=== PATIENT | male | born 1990 | race Caucasian/White ===

== ENCOUNTER → 2017-06-26 | Outpatient (CLI) | payer OTHER ==
--- NOTE | 2017-06-26 08:39 | DIAGNOSTIC IMAGING REPORT ---
SOFT TISS HEAD/NECK-THYROID CLINICAL HISTORY: 27 years-old Male with R59.1 Lymphadenopathy COMPARISON: None available TECHNIQUE: Multiple real time sonographic images of the thyroid were obtained accessing miller scale appearance and color doppler flow. FINDINGS: MEASUREMENTS: Right lobe: 5.5 x 1.4 x 1.9 cm Left lobe: 4.4 x 1.2 x 1.5 cm Isthmus: 0.3 cm PARENCHYMA: The thyroid parenchymal echotexture is generally homogeneous. THYROID NODULES: No discrete nodules are appreciated. SOFT TISSUES: Within the right neck normal-appearing lymph nodes with echogenic fatty sonido are seen, largest of which measures 3.1 x 0.9 x 1.9 cm. Within the left neck the largest lymph node measures 3.3 x 0.9 x 1.5 cm. No pathologically enlarged lymph nodes are identified. IMPRESSION: 1. Unremarkable sonographic appearance of the thyroid without discrete thyroid nodule identified. 2. Mildly prominent nonenlarged bilateral lymph nodes of the neck measuring less than 1 cm in short axis are likely on a physiologic basis. Follow-up could be considered to exclude a progressive abnormality if clinically indicated. The above report was generated using voice recognition software. It may contain grammatical, syntax or spelling errors. Electronically signed by: Flaoc Ramos M.D. 06/26/2017 8:38 AM Dictated Date/Time: 06/26/2017 8:34 AM
== END | disposition home or self-care (01) ==
LOC: C.ULTRBC 08:05
PROVIDERS: ATTEND Physician Assistant Medical
DX: R59.1 Generalized enlarged lymph nodes (principal)

== ENCOUNTER → 2017-08-29 | Outpatient (CLI) | payer OTHER ==
[~2017-08-29] MED LIST: OPTIRAY 320 IV PRN
--- NOTE | 2017-08-29 09:47 | DIAGNOSTIC IMAGING REPORT ---
SOFT TISSUE NECK WITH HISTORY: 27 years-old Male R59.1 [id number] COMPARISON: Thyroid ultrasound 06/26/2017 TECHNIQUE: Multiple axial CT images of the soft tissues of the neck were obtained following the intravenous administration of 94 mL Optiray 320 IV contrast. A dose lowering technique was used consistent with the principals of LEONOR. FINDINGS: Nasopharynx, oral pharynx and hypopharynx are patent. Scattered calcifications within the distribution of the palatine tonsil on the right suggest tonsilliths. The vallecula and piriform sinuses, epiglottis and area epiglottic folds are unremarkable. Glottis and subglottic airway are unremarkable. No prevertebral soft tissue swelling or acute inflammatory changes. The thyroid is homogeneous. Level II lymph nodes are seen measuring up to 8-9 mm mm in short axis bilaterally, within normal limits in size. No pathologically enlarged lymph nodes by CT size criteria. The parotid, submandibular and sublingual glands appear unremarkable. Lung apices are clear. No pneumothorax. Orbits are symmetric and within normal limits. No acute intracranial abnormality. Vascular structures about the neck appear unremarkable. Bones appear intact. No significant degenerative changes. Mild straightening of the cervical lordosis. Paranasal sinuses are clear. Mastoid air cells are clear. IMPRESSION: 1. No acute abnormality identified involving the soft tissues of the neck. 2. Mildly prominent bilateral level II lymph nodes are within normal limits in size and are likely physiologic. No pathologically enlarged lymph nodes by CT size criteria. The above report was generated using voice recognition software. It may contain grammatical, syntax or spelling errors. Electronically signed by: Flaco Ramos M.D. 08/29/2017 9:46 AM Dictated Date/Time: 08/29/2017 9:39 AM
== END | disposition home or self-care (01) ==
LOC: C.CTS 09:22
PROVIDERS: ATTEND Physician Assistant Medical
DX: R59.1 Generalized enlarged lymph nodes (principal)